=== PATIENT | female | born 1990 | race Two or more races ===

== ENCOUNTER 2023-02-23 09:25 | Emergency (ER) | payer OTHER ==
[~2023-02-23] VITALS: Ht 162.6 cm; Wt 72.6 kg
[2023-02-23 09:33] VITALS: BP 117/69; PULSE 82; RESP 16; TEMP 97.7; O2SAT 99
== END 2023-02-23 11:21 | disposition home or self-care (01) ==
LOC: ER 09:25
DX: O26.891 Other specified pregnancy related conditions, first trimester (principal); R10.2 Pelvic and perineal pain; S39.012A Strain of muscle, fascia and tendon of lower back, initial encounter; Z3A.01 Less than 8 weeks gestation of pregnancy; V43.52XA Car driver injured in collision with other type car in traffic accident, initial encounter; Y93.89 Activity, other specified; Y92.89 Other specified places as the place of occurrence of the external cause; Y99.8 Other external cause status
CPT/HCPCS: 36415; 76801; 84702